=== PATIENT | female | born 2000 | race Caucasian/White ===

== ENCOUNTER 2022-07-20 04:58 | Emergency (ER) | payer BC ==
[~2022-07-20] VITALS: Ht 170.2 cm; Wt 100.0 kg
[2022-07-20] MEDS ORDERED: FLEXERIL 1010 MG/TAB PO (05:37)
[2022-07-20] MEDS ORDERED: PREDNISONE50 MG PO (05:37)
[2022-07-20 05:43] VITALS: BP 134/85; PULSE 80; TEMP 97.9
== END 2022-07-20 05:43 | disposition home or self-care (01) ==
LOC: COL.ER 04:58
DX: M54.16 Radiculopathy, lumbar region (principal); Z28.310 Unvaccinated for COVID-19
CPT/HCPCS: J7512